=== PATIENT | male | born 1975 ===

== ENCOUNTER 2019-02-04 21:55 | Emergency (ER) | payer MEDICAID, OTHER ==
[~2019-02-04] VITALS: Ht 182.9 cm; Wt 96.6 kg
[2019-02-04 22:18] VITALS: BP 151/104
--- NOTE | 2019-02-04 22:18 | NUR ---
ED Nurse Note: Patient walk in c/o abcess on nasal septum on left side for 1 year causing nasal congestion. Patient also reports rash on genital area for 1 month. pt denies pain.
--- NOTE | 2019-02-04 22:59 | Emergency Room Report ---
History of Present Illness General Chief Complaint: Skin Rash/Abscess Source: Patient Present Illness HPI Patient 43-year-old male presented after increased penile rash. Patient had gradual onset of symptoms. He denies any pain. Patient states his had been cheating on him and he had noticed a rash subsequently. He additionally states that he has had a nasal lesion which is been present for many months. He reports having increased discomfort as well as increased in size. He denies any fever. He denies any severe headaches. Allergies: Coded Allergies: No Known Allergies (Unverified , 02/04/19) Patient History Past Medical History: see triage record Reviewed Nursing Documentation: PMH: Agreed; PSxH: Agreed Nursing Documentation-PMH Past Medical History: No Stated History Review of Systems All Other Systems: negative except mentioned in HPI Physical Exam Vital Signs Date Time Temp Pulse Resp B/P (MAP) Pulse Ox O2 Delivery O2 Flow Rate FiO2 02/04/19 22:10 98.1 80 16 151/104 96 Room Air General Appearance: well appearing, no apparent distress, alert, GCS 15, non- toxic Head: normocephalic, atraumatic ENT: hearing grossly normal, normal voice, other - left nare with fluid filled lesion to septum Neck: full range of motion, supple Respiratory: chest non-tender, lungs clear, no respiratory distress, speaking full sentences Cardiovascular #1: normal inspection Gastrointestinal: normal inspection Musculoskeletal: normal inspection, no calf tenderness Neurologic: normal inspection, alert, oriented x3, normal gait Psychiatric: normal inspection, mood/affect normal Skin: no rash Medical Decision Making Diagnostic Impression: Primary Impression: Nasal polyp Additional Impression: Penile lesion ER Course Patient presented for nasal polyp. Differential diagnosis include was not limited to polyp, abscess, hematoma among others. Patient was additionally noted to have a penile rash. This appears to be painless and has some eczema- like qualities. Patient will be empirically treated for syphilis due to painless lesion on his penis.May be a flat wart.Patient was advised outpatient STI testing. He will be empirically treated for syphilis. Patient was advised to follow-up with ENT for nasal polyp. Patient was advised to return if he had any concerns. Last Vital Signs Date Time Temp Pulse Resp B/P (MAP) Pulse Ox O2 Delivery O2 Flow Rate FiO2 02/04/19 22:18 98.1 80 16 151/104 96 Room Air Status: improved Disposition: HOME, SELF-CARE Condition: Stable Scripts Doxycycline Monohydrate* (DOXYCYCLINE MONOHYDRATE*) 100 Mg Capsule 100 MG ORAL Q12H, #14 CAP 0 Refills Prov: Sathish Barrow MD 02/04/19 Sathish Barrow MD Feb 04, 2019 22:59
[2019-02-04] MEDS ORDERED: Bicillin LA 2.4MMU/4ML SYR IM ONE (23:30)
[2019-02-04] MEDS ORDERED: DOXYCYCLINE MO100 MG ORAL (23:32)
[2019-02-04 23:40] VITALS: BP 151/104
--- NOTE | 2019-02-04 23:40 | NUR ---
ER DISCHARGE NOTE: Patient is cleared to be discharged per ERMD, pt is aox4, on room air, with stable vital signs. pt was given dc and prescription instructions, pt was able to verbalize understanding, pt id band and removed without complications. pt is able to ambulate with steady gait. pt took all belongings.
== END 2019-02-04 23:40 | disposition home or self-care (01) ==
LOC: EMR 22:37
DX: R21 Rash and other nonspecific skin eruption (principal); J33.9 Nasal polyp, unspecified
CPT/HCPCS: 96372; 99283

== ENCOUNTER 2019-09-17 18:33 | Emergency (ER) | payer OTHER ==
[~2019-09-17] VITALS: Ht 182.9 cm; Wt 88.5 kg
[~2019-09-17 18:33] MED LIST: DOXYCYCLINE MO100 MG ORAL
--- NOTE | 2019-09-17 18:44 | NUR ---
ED Nurse Note: PT WALKED IN TO ER TODAY FROM HOME. AOX4. PT C/O RIGHT KNEE PAIN AND SWELLING X YESTERDAY. PT DENIES ANY RECENT INJURY OR TRAUMA. FULL ROM OF EXTREMITY BUT WITH PAIN. PT DENIES NUMBNESS OR TINGLING. CIRCULATION AND SENSATION INTACT. GAIT STEADY IN ER.
[2019-09-17 18:45] VITALS: BP 123/73
--- NOTE | 2019-09-17 19:10 | NUR ---
HAND-OFF: Report given to CAROLINA GOMES.
[2019-09-17] MEDS ORDERED: IBUPROFEN600 MG ORAL (19:26)
[2019-09-17 19:30] VITALS: BP 123/73
--- NOTE | 2019-09-17 19:32 | NUR ---
ER DISCHARGE NOTE: Patient is cleared to be discharged per ERMD, pt is aox4, on room air, with stable vital signs. pt was given dc and prescription instructions, pt was able to verbalize understanding, pt id band removed. pt is able to ambulate with steady gait. pt took all belongings.
--- NOTE | 2019-09-22 11:29 | Emergency Room Report ---
History of Present Illness General Chief Complaint: Pain Source: Patient Present Illness HPI 44 yo M presents to ED for evaluation. complaining of R knee pain/swelling. started yesterday. 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 pain is throbbing 7/10 nonradiating. denies falling or injury. is able to bear weight. no other aggravating or relieving factors. denies any other associated symptoms,. Allergies: Coded Allergies: No Known Allergies (Unverified , 02/04/19) Patient History Past Medical History: none Past Surgical History: none Pertinent Family History: none Social History: Denies: smoking, alcohol use, drug use Immunizations: UTD Reviewed Nursing Documentation: PMH: Agreed; PSxH: Agreed Nursing Documentation-PMH Past Medical History: No Stated History Review of Systems All Other Systems: negative except mentioned in HPI Physical Exam Sp02 EP Interpretation: reviewed, normal General Appearance: no apparent distress, alert, GCS 15, non-toxic Head: normocephalic Eyes: bilateral eye normal inspection, bilateral eye PERRL ENT: normal ENT inspection Neck: normal inspection Respiratory: normal inspection Cardiovascular #1: normal inspection Gastrointestinal: normal inspection Rectal: deferred Genitourinary: no CVA tenderness Musculoskeletal: normal range of motion, tender - R knee Neurologic: alert, oriented x3, responsive, motor strength/tone normal, sensory intact, speech normal Psychiatric: normal inspection Skin: no rash Lymphatic: normal inspection Medical Decision Making Diagnostic Impression: Primary Impression: Knee pain Qualified Codes: M25.561 - Pain in right knee ER Course Hospital Course 44 yo M presents to ED c/o R knee and swelling Differential Diagnosis include: sprain, fracture, dislocation Clinical Course: Patient placed on stretcher in ED. after initial history, physical exam reveals male in no acute distress. there is some appreciable swelling to the R knee. full ROM noted. no joint laxity. discussed findings with patient. likely inflammatory due to repeated stress to the knee. consideration for arthritis. given motrin in ED no imaging indicated at this time. patient agrees. given motrin in ED. safe for discharged with close outpatient followup. i'll provide referrals Diagnosis - knee pain Patient stable and discharged to home with Rx Motrin. patient instructed to apply ice, keep elevated. Patient instructed to followup with their PMD/ ortho. Instructed to return to ED if symptoms recur/worsen. Status: improved Disposition: HOME, SELF-CARE Condition: Stable Scripts Ibuprofen* (MOTRIN*) 600 Mg Tablet 600 MG ORAL Q8H PRN for For Pain, #30 TAB 0 Refills Prov: Leonel Richmond MD 09/17/19 Referrals: [facility] Open 24 hour /7 days a week by Appointment Only [address] [place] [address] [facility] [address] Departure Forms: Return to Work Return to Work Date: Sep 19, 2019 Work Restrictions: No Heavy Lifting Patient Instructions: Arthritis, [id number] Leonel Richmond MD Sep 22, 2019 11:29
== END 2019-09-17 19:32 | disposition home or self-care (01) ==
LOC: EMR 19:07
DX: M25.561 Pain in right knee (principal)
CPT/HCPCS: 99282

== ENCOUNTER 2019-12-01 00:17 | Emergency (ER) | payer SELFPAY ==
[~2019-12-01] VITALS: Ht 188 cm; Wt 81.6 kg
[~2019-12-01 00:17] MED LIST changes: +IBUPROFEN600 MG ORAL
--- NOTE | 2019-12-01 00:39 | Emergency Room Report ---
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 Characterization is achy in nature. Allergies: Coded Allergies: No Known Allergies (Unverified , 02/04/19) Patient History Past Medical History: see triage record Reviewed Nursing Documentation: PMH: Agreed; PSxH: Agreed Nursing Documentation-PMH Past Medical History: No Stated History Review of Systems All Other Systems: negative except mentioned in HPI Physical Exam Vital Signs Date Time Temp Pulse Resp B/P (MAP) Pulse Ox O2 Delivery O2 Flow Rate FiO2 12/01/19 00:33 97.5 63 14 128/78 (95) 97 Room Air General Appearance: well appearing, no apparent distress Head: normocephalic, atraumatic ENT: hearing grossly normal, normal voice Neck: full range of motion, supple Respiratory: no respiratory distress, speaking full sentences Musculoskeletal: other - Right knee: Anterior posterior negative, valgus varus stress negative, 5-5 strength knee flexion extension Neurologic: alert, normal gait Psychiatric: mood/affect normal Skin: no rash Medical Decision Making Diagnostic Impression: Primary Impression: Arthralgia of knee, right ER Course 44-year-old male presents with right knee pain differential diagnosis includes bursitis, fracture, arthritis Patient most likely with right knee arthritis 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 patient given Toradol, and Tylenol counseled patient to follow-up with Ortho X-ray shows no acute fracture Other X-Ray Diagnostic Results Other X-Ray Diagnostic Results : X-Ray ordered: Right Knee # of Views/Limited Vs Complete: 3 View Indication: Pain EP Interpretation: Yes Interpretation: no dislocation, no fractures Impression: No acute disease Electronically Signed by: Jorge L Granado MD Last Vital Signs Date Time Temp Pulse Resp B/P (MAP) Pulse Ox O2 Delivery O2 Flow Rate FiO2 12/01/19 00:33 97.5 63 14 128/78 (95) 97 Room Air Disposition: HOME, SELF-CARE Condition: Stable Scripts Lidocaine Patch* (Lidoderm Patch*) 1 Each Adh..patch 1 PATCH TOPIC DAILY, #7 PATCH 0 Refills Patch(es) may remain in place for up to 12 hours in any 24-hour period. Prov: Balakumar,Jorge L MD 12/01/19 Acetaminophen (Acetaminophen) 500 Mg Tablet 1000 MG ORAL Q8HR for PAIN, #60 TAB Prov: Jorge L Granado MD 12/01/19 Ibuprofen* (MOTRIN*) 600 Mg Tablet 600 MG ORAL Q8H PRN for For Pain, #30 TAB 0 Refills Prov: Jorge L Granado MD 12/01/19 Referrals: Ira Moralez [facility] Patient Instructions: Arthritis, [id number], Preparing for Knee Replacement, Total Knee Replacement Additional Instructions: The patient was provided with discharge instructions, notified to follow-up with a primary care doctor and or specialist in the next 24-48 hours, and to return to the ED if they have worsening of their symptoms. Please note that this report is being documented using [employer] technology. This can lead to erroneous entry secondary to incorrect interpretation by the dictating instrument. Jorge L Granado MD Dec 01, 2019 00:39
--- NOTE | 2019-12-01 00:40 | NUR ---
ED Nurse Note: PT AMBULATED TO ED WITH CRUTCHES C/O RIGHT KNEE PAIN [id number]. DENIES TRAUMA OR FALL. PT VSS, NAD. WILL CONTINUE TO MONITOR PATIENT.
[2019-12-01] MEDS ORDERED: Acetaminophen 500mg (ES) tab ORAL ONE (00:45)
[2019-12-01] MEDS ORDERED: IBUPROFEN600 MG ORAL (00:45)
[2019-12-01] MEDS ORDERED: ACETAMINOPHEN500 M5 ORAL (00:45)
[2019-12-01] MEDS ORDERED: LIDODERM700 M1 TOPIC (00:45)
[2019-12-01] MEDS ORDERED: Ketorolac 30mg Inj IM ONE (00:45)
--- NOTE | 2019-12-01 00:50 | NUR ---
ED Nurse Note: XR AT BEDSIDE.
[2019-12-01 01:18] VITALS: BP 132/72
--- NOTE | 2019-12-01 01:18 | NUR ---
ER DISCHARGE NOTE: Patient is cleared to be discharged per ERMD, pt is aox4, on room air, with stable vital signs. pt was given dc and prescription instructions, pt was able to verbalize understanding, pt id band removed without complications. pt is able to ambulate with steady gait on crutches. pt took all belongings.
--- NOTE | 2019-12-02 15:33 | Diagnostic Imaging Report ---
Indication: Right knee pain Technique: 2 views of the right knee Comparison: none Findings: There is a linear metallic radiopaque foreign body, presumably a broken off needle tip, in the anterior superficial distal thigh, probably within the subcutaneous fat. No acute fractures. No dislocations. Joint spaces are preserved. No suprapatellar effusion. However, there is some swelling about the knee joint posteriorly which could indicate a joint effusion Impression: No acute bony trauma Possible joint effusion Positive for metallic foreign body as described. This finding was reported to Dr. Edwards in the emergency room at the time of interpretation
== END 2019-12-01 01:18 | disposition home or self-care (01) ==
LOC: EMR 01:15
DX: M17.11 Unilateral primary osteoarthritis, right knee (principal)
CPT/HCPCS: 73560; 96372; 99283; J1885